=== PATIENT | female | born 1985 ===

== ENCOUNTER 2019-11-05 14:38 | Emergency (ER) | payer OTHER ==
[~2019-11-05] VITALS: Ht 157.5 cm; Wt 70.5 kg
[2019-11-05] MEDS ORDERED: CETI-193 PO (14:57)
[2019-11-05] MEDS ORDERED: NAPR-1025 PO (14:57)
[2019-11-05 15:20] VITALS: BP 119/95
== END 2019-11-05 16:35 | disposition home or self-care (01) ==
LOC: EMS 14:41
DX: Z20.828 Contact with and (suspected) exposure to other viral communicable diseases (principal); G43.909 Migraine, unspecified, not intractable, without status migrainosus; F41.9 Anxiety disorder, unspecified
CPT/HCPCS: 87635